=== PATIENT | male | born 1955 | race Caucasian/White ===

== ENCOUNTER 2021-01-12 07:00 | Observation (INO) | payer MEDICARE ==
[2021-01-09 11:40] LABS: BASOPHILS # (AUTO) 0.1 (0.0-0.1); BASOPHILS % 0.9 % (0.0-1.0); EOSINOPHILS # (AUTO) 0.2 (0.0-0.4); EOSINOPHILS % 2.3 % (0.0-6.0); HEMATOCRIT 41.6 % (38.2-49.6); HEMOGLOBIN 14.2 g/dL (14.0-18.0); LYMPHOCYTES # (AUTO) 2.7 (1.0-3.2); LYMPHOCYTES % 30.7 % (18.0-39.1); MEAN CORPUSCULAR HEMOGLOBIN 32.6 pg (28-32); MEAN CORPUSCULAR HGB CONC 34.1 g/dL (31-35); MEAN CORPUSCULAR VOLUME 95.4 fL (81-99); MONOCYTES # (AUTO) 0.9 (0.2-0.8); MONOCYTES % 10.6 % (4.4-11.3); NEUTROPHILS # (AUTO) 4.8 (2.1-6.9); PLATELET COUNT 284 x10e3/uL (140-360); RED BLOOD COUNT 4.36 x10e6/uL (4.3-5.7)
[2021-01-09 12:13] LABS: ANION GAP 11.6 mmol/L (8-16); BLOOD UREA NITROGEN 9 mg/dL (7-26); BUN/CREATININE RATIO 9 (6-25); CALCIUM 9.6 mg/dL (8.4-10.2); CARBON DIOXIDE 25 mmol/L (22-29); CHLORIDE 107 mmol/L (98-107); CREATININE, SERUM 0.97 mg/dL (0.72-1.25); EST GLOMERULAR FILTRATION RATE > 60 ML/MIN (60-); GLUCOSE 101 mg/dL (74-118); POTASSIUM 4.6 mmol/L (3.5-5.1); SODIUM 139 mmol/L (136-145)
[2021-01-09 12:40] LABS: INR 0.92; PROTHROMBIN TIME 12.9 seconds (11.9-14.5)
[2021-01-09 12:41] LABS: PARTIAL THROMBOPLASTIN TIME 27.7 seconds (23.8-35.5)
[~2021-01-12] VITALS: Ht 167.6 cm; Wt 78.5 kg
[~2021-01-12 07:00] MED LIST: BUPIVACAINE 0.5%/EPI 30 ML SDV INJ ONE; LIPITOR10 MG PO; METOPROLOL SUCC25 MG PO; THROMBIN FOR SOLN 5,000 UNIT VIAL ONE; VANCOMYCIN HCL 1 GM VIAL ONE
[2021-01-12] MEDS ORDERED: ACETAMINOPHEN 1000 MG/100 ML 100 ML IV ONE (07:24)
[2021-01-12] MEDS ORDERED: IBUPROFEN 800MG/ 200ML 200 ML IV ONE (07:24)
[2021-01-12] MEDS ORDERED: LIDOCAINE HCL (LTA) 4 ML SOLN ONE (07:24)
[2021-01-12] MEDS ORDERED: CEFAZOLIN SOD 1 GM/NS 50ML 100 ML IV ONE (07:32)
[2021-01-12] MEDS ORDERED: CARISOPRODOL 350 MG TAB PO PRN (11:00)
[2021-01-12] MEDS ORDERED: OXYCODONE/ACETAMINOPHEN 5-325 1 EACH TABLET PO PRN (11:00)
[2021-01-12] MEDS ORDERED: PROMETHAZINE HCL (IM) 25 MG/ML VIAL IM PRN (11:00)
[2021-01-12] MEDS ORDERED: HYDROMORPHONE 2MG/ML 2 MG/ML ML IV PRN (11:00)
[2021-01-12] MEDS ORDERED: MORPHINE SULFATE 5 MG/ML VIAL IM PRN (11:00)
[2021-01-12] MEDS ORDERED: MAGNESIUM/ALUMINUM/SIMETHICONE 30 ML UDC PO PRN (11:00)
[2021-01-12] MEDS ORDERED: ACETAMINOPHEN 325 MG TAB PO PRN (11:00)
[2021-01-12] MEDS ORDERED: ONDANSETRON HCL INJ 2MG/ML 2ML 2 MG/ML VIAL IV PRN (11:00)
[2021-01-12] MEDS ORDERED: HYDROCODON-ACE1 EA12 PO (11:02)
[2021-01-12] MEDS ORDERED: PROPOFOL IV EMULSION 10 MG/ML 20 ML VIAL ONE (12:57)
[2021-01-12] MEDS ORDERED: GLYCOPYRROLATE INJ 0.2 MG/ML VIAL ONE (12:57)
[2021-01-12] MEDS ORDERED: DEXAMETHASONE SOD PHOS INJ 4 MG/ML VIAL ONE (12:57)
[2021-01-12] MEDS ORDERED: LIDOCAINE HCL 2% LOCAL INJ 5 ML SDV VIAL INJ ONE (12:57)
[2021-01-12] MEDS ORDERED: ONDANSETRON HCL INJ 2MG/ML 2ML 2 MG/ML VIAL ONE (12:57)
[2021-01-12] MEDS ORDERED: NEOSTIGMINE 1 MG/ML 10ML VIAL ONE (12:57)
[2021-01-12] MEDS ORDERED: ROCURONIUM BROMIDE 10 MG/ML 5ML VIAL IV ONE (12:57)
[2021-01-12] MEDS ORDERED: SEVOFLURANE INHAL SOLN 250 ML PEN BTL ONE (12:57)
[2021-01-12] MEDS ORDERED: LIDOCAINE HCL 2% JELLY 5 ML TUBE ONE (12:57)
[2021-01-12] MEDS ORDERED: EPHEDRINE SULFATE INJ 50 MG/ML VIAL ONE (12:57)
[2021-01-12] MEDS ORDERED: POVIDONE IODINE 0.05% 0.05 % ML PO ONE (12:57)
[2021-01-12] MEDS ORDERED: MIDAZOLAM HCL 2 MG/2 ML VIAL ONE (13:20)
[2021-01-12] MEDS ORDERED: FENTANYL CITRATE/PF 100MCG/2 ML INJ ONE (13:20)
[2021-01-12 14:43] VITALS: BP 166/80
[2021-01-12] MEDS: LACTATED RINGER'S 1,000 ML IV SCH ×2 (15:02→19:20)
[2021-01-12 15:08] VITALS: BP 166/80
[2021-01-12 15:51] VITALS: BP 134/72
[2021-01-12] MEDS: CEFAZOLIN SOD 1 GM/NS 50ML 50 ML IV SCH (18:00)
[2021-01-12 20:00] VITALS: BP 120/74
[2021-01-12 20:52] VITALS: BP 120/74
[2021-01-12] MEDS ORDERED: ATORVASTATIN 40 MG TAB PO SCH (21:00)
[2021-01-12] MEDS ORDERED: ZOLPIDEM TARTRATE 5 MG TAB PO PRN (21:00)
[2021-01-13] VITALS: BP 134/73
[2021-01-13] MEDS: CEFAZOLIN SOD 1 GM/NS 50ML 50 ML IV SCH ×2 (02:15→08:32)
[2021-01-13] MEDS: LACTATED RINGER'S 1,000 ML IV SCH (03:40)
[2021-01-13 05:24] VITALS: BP 126/79
[2021-01-13 08:07] VITALS: BP 142/89
[2021-01-13 08:14] VITALS: BP 142/89
[2021-01-13] MEDS ORDERED: METOPROLOL SUCCINATE 25 MG TAB XL PO SCH (09:00)
== END 2021-01-13 10:10 | disposition home or self-care (01) ==
LOC: OR 07:00 → PACU V 11:01 → MED/SURG 14:43
PROVIDERS: ADMIT Neurological Surgery; ATTEND Neurological Surgery
DX: M47.22 Other spondylosis with radiculopathy, cervical region (principal); I10 Essential (primary) hypertension; E78.5 Hyperlipidemia, unspecified; M19.90 Unspecified osteoarthritis, unspecified site; Z01.810 Encounter for preprocedural cardiovascular examination; Z01.812 Encounter for preprocedural laboratory examination; Z01.818 Encounter for other preprocedural examination; Z20.822 Contact with and (suspected) exposure to COVID-19; I25.10 Atherosclerotic heart disease of native coronary artery without angina pectoris
CPT/HCPCS: 20931; 22551; 22552; 22845; 36415; 71046; 72040; 80048; 85025; 85610; 85730; 86850 ×2; 86900 ×2; 88304; 88311; 93005; C1713 ×5; C1763; G0378 ×2; J0131; J0690 ×2; J1100; J2001 ×2; J2250; J2405; J2704; J2710; J3010; J3370; J7121; U0002; 77003

== ENCOUNTER → 2021-02-09 | Outpatient (CLI) | payer MEDICARE ==
[~2021-02-09] MED LIST changes: -BUPIVACAINE 0.5%/EPI 30 ML SDV INJ ONE; +HYDROCODON-ACE1 EA12 PO; -THROMBIN FOR SOLN 5,000 UNIT VIAL ONE; -VANCOMYCIN HCL 1 GM VIAL ONE
== END ==
LOC: RAD 08:59
PROVIDERS: ATTEND Neurological Surgery
DX: M50.20 Other cervical disc displacement, unspecified cervical region (principal); M43.22 Fusion of spine, cervical region
CPT/HCPCS: 72050

== ENCOUNTER → 2021-09-20 | Outpatient (CLI) | payer MEDICARE | LOC: RAD 08:24 | PROVIDERS: ATTEND Neurological Surgery | DX: M50.20 Other cervical disc displacement, unspecified cervical region (principal); M43.22 Fusion of spine, cervical region | CPT/HCPCS: 72050 ==